=== PATIENT | male | born 1995 | race Caucasian/White ===

== ENCOUNTER 2016-09-26 17:58 | Emergency (ER) | payer OTHER ==
[~2016-09-26 17:58] MED LIST: MIRALAX17 GM; NAPROXEN PO; NO MEDICATIONS; ZOFRAN ODT4 MG/UDTAB PO
== END 2016-09-26 19:06 | disposition home or self-care (01) ==
LOC: SED 17:58
DX: S05.01XA Injury of conjunctiva and corneal abrasion without foreign body, right eye, initial encounter (principal); F17.210 Nicotine dependence, cigarettes, uncomplicated; Z23 Encounter for immunization; X58.XXXA Exposure to other specified factors, initial encounter; Y92.69 Other specified industrial and construction area as the place of occurrence of the external cause; Y99.0 Civilian activity done for income or pay
CPT/HCPCS: 90471; 90715; 99283